=== PATIENT | female | born 1945 | race Native Hawaiian/Other Pacific Islander ===

== ENCOUNTER 2021-07-15 12:05 | Outpatient (CLI) | payer OTHER, MEDICARE ==
[~2021-07-15] VITALS: Ht 165.1 cm; Wt 82.1 kg
== END 2021-07-15 22:02 | disposition home or self-care (01) ==
LOC: INF 12:05
PROVIDERS: ATTEND Internal Medicine Endocrinology, Diabetes & Metabolism
DX: Z23 Encounter for immunization (principal); U07.1 COVID-19
CPT/HCPCS: 96365; M0244